=== PATIENT | male | born 1975 | race Caucasian/White ===

== ENCOUNTER 2024-03-09 12:44 | Emergency (ER) | payer SELFPAY ==
[2024-03-09 12:46] VITALS: BP 163/98
--- NOTE | 2024-03-09 13:18 | ED.GENMED ---
History of Present Illness
General
Chief Complaint: Musculo-Skeletal Complaint
Source: patient
Time Seen by Provider: 03/09/24 13:01
History of Present Illness
History of Present Illness:
48-year-old male patient with past medical history of previous surgery with revision to the right hand/wrist presenting to the ER after injuring the same right hand/wrist on Wednesday where he states at work he was attempting to move laundry out of the
room and got his hand pinned in between the door frame of the laundry basket and the door frame causing him continued pain. Patient's range of motion is already significantly limited due to a buffy being placed in the wrist from his previous surgery.
Denies any focal weakness or numbness. No other injuries sustained. Injury did occur while patient was at work
Past History
Past History
ED Past Medical History: None
ED Past Surgical History: Orthopedic
Social History
Tobacco: Smoker
Alcohol: Occasional
Drug: None
Personal: Single
Living: alone
Employment: Employed
Review of Systems
Review of Systems
All Other Systems: ROS reviewed and negative except as documented in HPI and ROS
Phy Exam
Physical Exam
Physical Exam:
GENERAL: Alert , in no apparent distress
EYE: conjunctiva clear
Head: Normocephalic atraumatic
NECK: Supple,
ENT: mmm.
LUNGS: no acute respiratory distress
NEUROLOGICAL: Alert and oriented
SKIN: Warm and dry, skin intact.
MUSCULOSKELETAL: Right hand/wrist: Arthritic changes noted to the hand and wrist, well-healed surgical scars without any signs of infection. Range of motion is already limited at baseline and unchanged today. Easily palpable radial pulse. Cap
refill less than 2 seconds. Pain is mainly along the dorsal aspect of the hand overlying the carpal metacarpal joints
PSYCH: Normal and appropriate interaction.
Scores
Heart Failure Risk
Heart Failure Risk Score: Not Applicable
Heart Score for Chest Pain Patients
STEMI patient?: Not applicable
Withdrawal Assessment of Alcohol
Withdrawal Assessment Completed?: Not applicable
Course
Orders/Labs/Results
Orders:
Orders
03/09/24 12:51
CR Hand - Right Min 3 Views Urgent
Comment:
Reason For Exam: injury
CR Wrist - Right Min 3 Views Urgent
Comment:
Reason For Exam: injury
03/09/24 13:21
Splints/Slings/Crut- Treatment ONCE
Vital Signs
Initial and Last Documented VS:
Initial Vital Signs
Temp Pulse Resp BP Pulse Ox
97.9 F 97 16 163/98 99
03/09/24 12:46 03/09/24 12:46 03/09/24 12:46 03/09/24 12:46 03/09/24 12:46
Last Documented Vital Signs
Temp Pulse Resp BP Pulse Ox
97.9 F 97 16 163/98 99
03/09/24 12:46 03/09/24 12:46 03/09/24 12:46 03/09/24 12:46 03/09/24 12:46
MDM/Problems Addressed
Differential Diagnosis Includes:
Contusion, sprain, given mechanism a little less concern for fracture
MDM/Problems Addressed:
48-year-old male presenting emergency department for evaluation of right hand/wrist injury that occurred while at work. X-ray of the hand and wrist were ordered. There does appear to be hardware fracture to 2 screws within the distal wrist/hand.
Unclear if this occurred during patient's reported injury. Will place patient in a cock up splint for comfort. Continue NSAIDs as needed for pain. Short-term course of tramadol ordered as patient has had relief with this in the past. Patient's
previous orthopedist was in [place] but patient unable to follow-up with this provider. Will provide with information for orthopedics locally. Patient otherwise stable for discharge home
*Radiology
Radiology exam reviewed: preliminary read by ED provider (No osseous fracture however there does appear to be 2 separate screws that have fractured)
*Pulse Oximetry
Patient hypoxic: no
*Critical Care Note
Total Time (30-74mins, 75-104mins- exclusive of procedures): Not Applicable
ED Attending Note
-
Portions of this chart may have been created with voice recognition software.� Occasional wrong word or��sound alike� substitutions may have occurred due to the inherent limitations of voice recognition software.
Discharge Plan
Departure
Patient Disposition: Home (Routine Discharge)
Date of Disposition: 03/09/24
Time of Disposition: 13:18
Patient with high blood pressure during this ER visit?: Yes
Discharge Problem:
Hand pain, right
Instructions: Hand Pain (DC)
Prescriptions:
New
tramadol 50 mg tablet
50 mg PO BID PRN (Reason: Pain) Qty: 6 0RF
No Action
doxycycline hyclate 100 MG capsule
100 mg PO Q12 Qty: 19 0RF
ibuprofen 600 MG tablet
600 mg PO Q6HPRN PRN (Reason: pain) Qty: 20 0RF
tramadol 50 mg tablet
50 mg PO Q6H PRN (Reason: pain) Qty: 10 0RF
doxycycline hyclate 100 mg tablet
100 mg PO BID Qty: 14 0RF
Referrals:
Ashvin Kent MD [Active] - (Ortho - Please call for appointment)
Stand Alone Forms: Return to Work
Interventions
Interventions:
*Risk Screen - Suicide Last Done: 03/09/24 12:46
*General Assessment Last Done: 03/09/24 12:46
*Neglect/Abuse Screening Last Done: 03/09/24 12:46
*ED COVID-19 Vaccine History Last Done: 03/09/24 12:46
*Nursing Disposition Last Done: 03/09/24 14:35
ED-Musculoskeletal Assessment Last Done: 03/09/24 14:33
Discharge Date and Time
Discharge Date/Time: 03/09/24 14:36
Print Language: INDONESIAN
== END 2024-03-09 14:36 | disposition home or self-care (01) ==
LOC: EMR 12:44
PROVIDERS: EMERGENCY PHYSICIAN Student in an Organized Health Care Education/Training Program
DX: S69.91XA Unspecified injury of right wrist, hand and finger(s), initial encounter (principal); W23.0XXA Caught, crushed, jammed, or pinched between moving objects, initial encounter; Y99.0 Civilian activity done for income or pay; F17.200 Nicotine dependence, unspecified, uncomplicated; Z98.890 Other specified postprocedural states
CPT/HCPCS: 29125; 99283; 73110; 73130

== ENCOUNTER 2025-02-16 15:49 | Emergency (ER) | payer SELFPAY ==
[2025-02-16 16:16] VITALS: BMI 21.1
[2025-02-16 16:28] VITALS: BP 146/75
--- NOTE | 2025-02-16 16:55 | ED.MUSCINJ ---
HPI-Injury
General
Chief Complaint: Fall
Source: patient
Time Seen by Provider: 02/16/25 16:28
History of Present Illness-Injury
Initial Injury comments:
49-year-old male presents complaining of right posterior lateral chest wall pain. He is standing on a 5 gallon bucket and fell off a bucket landing on his right posterior ribs. He has significant pain is made worse with motion. He did not hit his
head. Not anticoagulated. No abdominal pain. He denies any hematuria since then. No other complaints
Past History
Past History
ED Past Medical History: None
ED Past Surgical History: Orthopedic
Social History
Tobacco: Smoker
Alcohol: Occasional
Drug: None
Personal: Single
Living: alone
Employment: Employed
Phy Exam
Physical Exam
Physical Exam:
General: Well developmental who does appear to be in moderate discomfort
HEENT: Normocephalic atraumatic
Musculoskeletal exam: The spine is nontender. He is tender over the right posterior chest wall diffusely without overlying ecchymosis swelling or step-off. There is no subcutaneous emphysema
Abdomen is soft and nontender
Skin is intact
Injury Course
Orders/Labs/Results
Orders:
Orders
02/16/25 15:56
CR Ribs-right 3 Vw W/pa Chest* Urgent
Comment:
Reason For Exam: fall with posterior R rib pain
02/16/25 16:52
Diazepam [Valium] 5 mg PO NOW STA
Ketorolac [Toradol] 30 mg IM NOW STA
MDM/Problems Addressed
Differential Diagnosis Includes:
Right posterior lateral chest wall pain after a fall. Consider rib fracture versus contusion versus strain versus pneumothorax
Rib series was ordered through triage which I have personally reviewed and demonstrates nondisplaced right posterior 12th rib fracture
*Pulse Oximetry
SaO2: 100
Oxygen Mode of Delivery: Room air
Patient hypoxic: no
*Critical Care Note
Total Time (30-74mins, 75-104mins- exclusive of procedures): Not Applicable
Update Note
Update Note:
Patient feeling improved after IM Toradol. Will continue anti-inflammatory muscle relaxer with additional tramadol if needed for pain. Stable for discharge
ED Attending Note
-
Portions of this chart may have been created with voice recognition software.� Occasional wrong word or��sound alike� substitutions may have occurred due to the inherent limitations of voice recognition software.
Discharge Plan
Departure
Patient Disposition: Home (Routine Discharge)
Date of Disposition: 02/16/25
Time of Disposition: 18:41
Patient with high blood pressure during this ER visit?: No
Discharge Problem:
Fracture of rib
Instructions: Rib Fracture
Prescriptions:
New
tramadol 50 mg tablet
50 mg PO Q8H PRN (Reason: Pain) Qty: 10 0RF
diazepam [Valium] 5 mg tablet
5 mg PO TID PRN (Reason: spasm) Qty: 10 0RF
ibuprofen 600 mg tablet
600 mg PO TID PRN (Reason: Pain) Qty: 20 0RF
No Action
ibuprofen 600 MG tablet
600 mg PO Q6HPRN PRN (Reason: pain) Qty: 20 0RF
Referrals:
NONE,* [Family Provider, Internal Medicine]
Activity Restrictions/Additional Instructions:
Try to avoid heavy lifting or twisting. Use prescribed medicine as directed. Return if worse otherwise follow-up with your doctor
Interventions
Interventions:
*Risk Screen - Suicide Last Done: 02/16/25 15:51
*General Assessment Last Done: 02/16/25 15:51
*Neglect/Abuse Screening Last Done: 02/16/25 15:51
*ED- Fall Risk Assessment Last Done: 02/16/25 16:28
*ED COVID-19 Vaccine History Last Done: 02/16/25 15:51
*ED Influenza Vaccine History Last Done: 02/16/25 15:51
ED-Musculoskeletal Assessment Last Done: 02/16/25 16:28
ED- Neurological Assessment Last Done: 02/16/25 16:28
ED-Skin Assessment Last Done: 02/16/25 16:28
Discharge Date and Time
Print Language: SPANISH
[2025-02-16] MEDS: VALIUM 5 MG PO (17:14)
[2025-02-16] MEDS: TORADOL 30 MG IM (17:14)
== END 2025-02-16 18:58 | disposition home or self-care (01) ==
LOC: EMR 15:49
PROVIDERS: EMERGENCY PHYSICIAN Emergency Medicine
DX: R07.89 Other chest pain (principal)
CPT/HCPCS: 99283; 96372; 71101

== ENCOUNTER 2025-03-25 12:15 | Emergency (ER) | payer SELFPAY ==
[2025-03-25 12:19] VITALS: BP 160/92
--- NOTE | 2025-03-25 14:17 | ED.GENMED ---
History of Present Illness
General
Chief Complaint: Musculo-Skeletal Complaint
Source: patient
Time Seen by Provider: 03/25/25 14:04
History of Present Illness
History of Present Illness:
49-year-old male presents to the emergency room complaining of pain in his right lower thorax. Patient suffered rib injury about 5 weeks ago. Patient states he really needed to continue working and so really did not take any time off. He pain was
gradually getting better until 4 days ago when he was lifting a toilet off of his truck. He had a sudden recurrence of pain in the same area as his previous rib fracture. The pain is now worse with movement and deep inspiration. He does not feel
short of breath. He has been taking ibuprofen was not really controlling his pain. Patient states that tramadol has worked well for him in the past. He does not want anything stronger like oxycodone. Patient also requesting a Toradol shot right
now.
Past History
Past History
ED Past Medical History: None
ED Past Surgical History: Orthopedic
Social History
Tobacco: Smoker
Alcohol: Occasional
Drug: None
Personal: Single
Living: alone
Employment: Employed
Phy Exam
Physical Exam
Physical Exam:
General: Awake, Alert, Oriented X3. No acute distress.
Vitals: unremarkable
Head: Atraumatic
Eyes: Pupils equal, EOMI
Neck: Trachea midline
Chest: Tender to palpation over the right lower lateral thorax. No crepitance
Lungs: Clear and equal b/l
Heart: Regular rate, no murmurs
Neuro: Nonfocal
Skin: Warm, dry, no rash
Extremities: pulses equal b/l, no edema
Course
Orders/Labs/Results
Orders:
Orders
03/25/25 12:23
Ribs, Right 3 View W/PA Chest [CR Ribs-right 3 Vw W/pa Chest*] Urgent
Comment:
Reason For Exam: pain and injury
03/25/25 14:16
Ketorolac [Toradol] 30 mg IM NOW STA
Vital Signs
Initial and Last Documented VS:
Initial Vital Signs
Temp Pulse Resp BP Pulse Ox
97.7 F 78 20 160/92 99
03/25/25 12:19 03/25/25 12:19 03/25/25 12:19 03/25/25 12:19 03/25/25 12:19
Last Documented Vital Signs
Temp Pulse Resp BP Pulse Ox
97.7 F 78 20 160/92 99
03/25/25 12:19 03/25/25 12:19 03/25/25 12:19 03/25/25 12:19 03/25/25 12:19
MDM/Problems Addressed
Differential Diagnosis Includes:
Reinjury of rib fracture, pneumothorax, muscle strain
MDM/Problems Addressed:
X-ray continues to show a 12 rib fracture. No pneumothorax. Pain management.
*Radiology
Radiology exam reviewed: preliminary read by ED provider (12th rib fractures visible. No pneumothorax)
*Pulse Oximetry
SaO2: 99
Oxygen Mode of Delivery: Room air
Patient hypoxic: no
*Critical Care Note
Total Time (30-74mins, 75-104mins- exclusive of procedures): Not Applicable
ED Attending Note
-
Portions of this chart may have been created with voice recognition software.� Occasional wrong word or��sound alike� substitutions may have occurred due to the inherent limitations of voice recognition software.
Discharge Plan
Departure
Patient Disposition: Home (Routine Discharge)
Date of Disposition: 03/25/25
Time of Disposition: 14:27
Patient with high blood pressure during this ER visit?: Yes
Discharge Problem:
Fracture of rib
Instructions: Rib Fracture
Prescriptions:
New
tramadol 50 mg tablet
50 mg PO TID PRN (Reason: Pain) Qty: 20 0RF
No Action
ibuprofen 600 MG tablet
600 mg PO Q6HPRN PRN (Reason: pain) Qty: 20 0RF
tramadol 50 mg tablet
50 mg PO Q8H PRN (Reason: Pain) Qty: 10 0RF
diazepam [Valium] 5 mg tablet
5 mg PO TID PRN (Reason: spasm) Qty: 10 0RF
ibuprofen 600 mg tablet
600 mg PO TID PRN (Reason: Pain) Qty: 20 0RF
Referrals:
UNKNOWN - PT DOES,NOT KNOW [Family Provider]
Stand Alone Forms: Return to Work
Interventions
Interventions:
*General Assessment Last Done: 03/25/25 13:20
*ED COVID-19 Vaccine History Last Done: 03/25/25 12:19
*ED Influenza Vaccine History Last Done: 03/25/25 12:19
*Risk Screen - Suicide (C-SSRS) Last Done: 03/25/25 12:19
ED-Musculoskeletal Assessment Last Done: 03/25/25 12:57
Discharge Date and Time
Print Language: GEORGIAN
[2025-03-25] MEDS: TORADOL 30 MG IM (14:29)
== END 2025-03-25 14:40 | disposition home or self-care (01) ==
LOC: EMR 12:15
PROVIDERS: EMERGENCY PHYSICIAN Emergency Medicine
DX: S22.31XA Fracture of one rib, right side, initial encounter for closed fracture (principal); X58.XXXA Exposure to other specified factors, initial encounter; F17.200 Nicotine dependence, unspecified, uncomplicated
CPT/HCPCS: 96372; 99284; 71101